=== PATIENT | male | born 1970 | race Caucasian/White ===

== ENCOUNTER 2021-04-09 17:12 | Emergency (ER) | payer BC, MEDICARE ==
[~2021-04-09 17:12] MED LIST: Iopamidol 370 76% 125 ML VIAL FS ONE; Sodium Chloride 0.9% 100 ML BAG ONE
[2021-04-09 18:21] LABS: ALT (SGPT) 18 U/L (8-55); AST (SGOT) 31 U/L (5-34); Albumin 3.1 g/dL (3.5-5.0); Alkaline Phosphatase 184 U/L (40-110); Anion Gap 15 mmol/L (10-20); BUN (Urea Nitrogen) 7 mg/dL (8.9-20.6); Bilirubin, Total 3.9 mg/dL (0.2-1.2); Calc. Creatinine Clearance 0 mL/min (70-130); Calcium 9.9 mg/dL (7.8-10.44); Carbon Dioxide 17 mmol/L (22-29); Chloride 108 mmol/L (98-107); Globulin 5.1 g/dL (2.4-3.5); Glucose 87 mg/dL (70-105); Potassium 3.7 mmol/L (3.5-5.1); Protein, Total 8.2 g/dL (6.0-8.3); Sodium 136 mmol/L (136-145)
[2021-04-09 18:22] LABS: CKMB 0.8 ng/mL (0-6.6)
[2021-04-09 18:27] LABS: #Basophils 0.1 thou/uL (0.0-0.2); #Eosinphils 0.5 thou/uL (0.0-0.7); #Lymphocytes 2.2 thou/uL (1.20-3.40); #Monocytes 0.8 thou/uL (0.11-0.59); #Neutrophils 3.5 thou/uL (1.40-6.50); %Eosinophils 6.6 % (0.0-10.0); %Lymphocytes 31.3 % (21.0-51.0); %Monocytes 10.8 % (0.0-10.0); %Neutrophils 49.3 % (42.0-75.0); Hemoglobin 14.3 g/dL (14.0-18.0); MDiff Complete? YES; Macrocytosis SLIGHT = 6-15 cells (100X) (0-5/hpf); Mean Corpuscular HGB CONC 36.1 g/dL (32.0-36.0); Mean Corpuscular Volume 105.4 fL (78.0-98.0); Mean Platelet Volume 7.4 fL (7.4-10.4); Platelet Count 92 thou/uL (130-400); Platelet Morphology Comment Appears Decreased; RBC Distribution Width 12.8 % (11.5-14.5); Red Blood Cell (RBC) Count 3.76 mill/uL (4.70-6.10); White Blood Cell (WBC) Count 7.1 thou/uL (4.8-10.8)
[2021-04-09] MEDS ORDERED: Morphine 4 MG/ML VIAL ONE (20:29)
[2021-04-09] MEDS ORDERED: Ondansetron PF 4 MG/2 ML Vial ONE (20:29)
== END 2021-04-09 20:41 | disposition home or self-care (01) ==
LOC: MADERS 17:12
DX: R07.2 Precordial pain (principal)
CPT/HCPCS: 71045; 71275; 82550; 82553; 84484; 85025; 93005; 94760; 96374; 96375; J2270; J2405; J3490; Q9967